=== PATIENT | female | born 1995 | race Two or more races ===

== ENCOUNTER 2018-08-31 20:57 | Emergency (ER) | payer BC, OTHER ==
[2018-08-31] MEDS ORDERED: ONDANSETRON 4 MG/2 ML VIAL IVPB ONE (21:02)
[2018-08-31] MEDS ORDERED: SODIUM CHLORIDE 1,000 ML IV ONE ×2 (21:02)
--- NOTE | 2018-08-31 21:03 | PDOC ---
History of Present Illness - History of Present Illness Initial Comments: This is a 28 year old female with no significant past medical history, who presents to the emergency department today complaining of nausea and vomiting for 2 days. Patient notes multiple episodes of nausea and vomiting each day, but denies hematemesis. She also reports associated diffuse cramping abdominal pain. Patient confirms chills, but denies a fever. 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 The patient denies chest pain, shortness of breath, headache and dizziness. Denies fever, diarrhea and constipation. Denies dysuria, frequency, urgency and hematuria. PAST MEDICAL HISTORY: no significant history PAST SURGICAL HISTORY: no significant history FAMILY HISTORY: no pertinent history SOCIAL HISTORY: Pt lives with family and is employed. MEDICATIONS: reviewed ALLERGIES: As per nursing notes ROS General: +Chills. No fevers, no weakness, no weight loss HEENT: No change in vision. No sore throat,. No ear pain CardioVascular: No chest pain or shortness of breath Respiratory: No cough, or wheezing. Gastrointestinal: +Nausea. +Vomiting. No diarrhea or constipation, No rectal bleeding Genitourinary: No dysuria, hematuria, or frequency Musculoskeletal: +Diffuse abdominal cramping. No joint or muscle swelling. Neurologic: No headache, vertigo, dizziness or loss of consciousness Psychiatric: nor depression Skin: No rashes or easy bruising Endocrine: no increased thirst or abnormal weight change Allergic: no skin or latex allergy All other systems reviewed and normal Exam: General: Well-nourished well-developed individual, no acute distress HEENT: +Dry mucous membranes. Throat: Normal, tonsils normal, no erythema or exudate Neck: Supple, no meningeal signs, no lymphadenopathy Eyes::Pupils equal reactive and round, extraocular motion intact Chest: Nontender to palpation Cardiac: +Mild tachycardia. S1-S2 normal, no murmurs rubs or gallops Respiratory: Lungs clear to auscultation bilateral Abdomen: Soft, nondistended, normal bowel sounds, nontender to palpation diffusely Extremities: Warm, dry, no cyanosis, clubbing, or edema Skin: No rashes Neuro: Alert and oriented x3, nonfocal exam, grossly intact, normal gait Psych: Normal mood and affect 08/31/18 21:30 <Olivia Nino - Last Filed: 08/31/18 21:33> - General History Source: Patient Exam Limitations: No Limitations - History of Present Illness Initial Comments: 08/31/18 21:15 A portion of this note was documented by scribe services under my direction. I have reviewed the details of the note, within reason, and agree with the documentation with the following case summary and management plan written by me. Patient treated in the ED. Nursing notes are reviewed and incorporated into the medical decision-making. Vital signs reviewed. Assessment and plan: This is a 23-year-old female who comes in complaining of nausea vomiting 2 days. 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 Patient otherwise denies any fevers but says she's had some chills as well as some crampy abdominal pain associated only with vomiting. On my exam patient had a mild tachycardia. To be mildly dehydrated but otherwise had a normal abdominal exam Patient given Zofran and 2 L of IV fluid 08/31/18 22:10 Patient feels much better, tolerating by mouth's, patient was able to urinate after hydration. Patient discharged home with prescription for Zofran <Deirck Bustos I - Last Filed: 08/31/18 22:10> - General Chief Complaint: Nausea/Vomiting Stated Complaint: VOMITING SINCE YESTERDAY Time Seen by Provider: 08/31/18 21:01 Past History <Olivia Nino - Last Filed: 08/31/18 21:33> - Immunization History Immunization Up to Date: Yes - Suicide/Smoking/Psychosocial Hx Smoking Status: No Smoking History: Never smoked Number of Cigarettes Smoked Daily: 0 <Derick Bustos I - Last Filed: 08/31/18 22:10> - Past Medical History Allergies/Adverse Reactions: Allergies Allergy/AdvReac Type Severity Reaction Status Date / Time No Known Allergies Allergy Verified 02/08/12 15:59 Home Medications: Ambulatory Orders Norgestimate-Ethinyl Estradiol [Sprintec 28 Day Tablet] 1 each PO DAILY Ondansetron [Zofran Odt -] 4 mg SL TID #12 od.tablet 08/31/18 *Physical Exam - Vital Signs Last Vital Signs Temp Pulse Resp BP Pulse Ox 99 F 108 H 16 135/72 100 08/31/18 21:07 08/31/18 21:07 08/31/18 21:07 08/31/18 21:07 08/31/18 21:07 <Olivia Nino - Last Filed: 08/31/18 21:33> Moderate Sedation - Procedure Monitoring Vital Signs: Procedure Monitoring Vital Signs Temperature 99 F 08/31/18 21:07 Pulse Rate 108 H 08/31/18 21:07 Respiratory Rate 16 08/31/18 21:07 Blood Pressure 135/72 08/31/18 21:07 O2 Sat by Pulse Oximetry (%) 100 08/31/18 21:07 <Olivia Nino - Last Filed: 08/31/18 21:33> ED Treatment Course - Medications Given in the ED: ED Medications Discontinued Medications Generic Name Dose Route Start Last Admin Trade Name Momo PRN Reason Stop Dose Admin Ondansetron HCl 8 mg 08/31/18 21:02 08/31/18 21:03 Zofran Injection IVPB 08/31/18 21:03 8 mg ONCE ONE Administration <Olivia Nino - Last Filed: 08/31/18 21:33> *DC/Admit/Observation/Transfer - Attestations Scribe Attestion: 08/31/18 21:33 Documentation prepared by ALEJANDRA Mccarthy, acting as medical instructor for Derick Bustos MD. <Olivia Nino - Last Filed: 08/31/18 21:33> - Discharge Dispostion Decision to Admit order: No <Derick Bustos I - Last Filed: 08/31/18 22:10> Diagnosis at time of Disposition: Nausea and vomiting Qualifiers: Vomiting type: unspecified Vomiting Intractability: non-intractable Qualified Code(s): R11.2 - Nausea with vomiting, unspecified - Discharge Dispostion Disposition: HOME Condition at time of disposition: Stable - Prescriptions Prescriptions: Ondansetron [Zofran Odt -] 4 mg SL TID #12 od.tablet - Patient Instructions Additional Instructions: Clear liquids only for the next 6 hours.. If you vomit again take Zofran 1 tablet under your tongue as often as every 6-8 hours After that if you have had no further vomiting you may have bananas, rice, applesauce, or toast. If no further vomiting for another 8 hours you may have regular food. If you vomit again then nothing to eat or drink for 2 hours. then start back with the clear liquids. Return to the emergency department immediately with ANY new, persistent or worsening symptoms. You MUST call and follow up with your doctor tomorrow if not better. Please make sure your doctor reviews the results of your emergency evaluation.
[2018-08-31 21:13] VITALS: BP 135/72; PULSE 108; TEMP 99; BMI 23.2
== END 2018-08-31 22:14 | disposition home or self-care (01) ==
LOC: FER 20:57
PROC: 3E033GC Introduction of Other Therapeutic Substance into Peripheral Vein, Percutaneous Approach (ICD-10-PCS; principal; 2018-08-31)
PROC: 3E0337Z Introduction of Electrolytic and Water Balance Substance into Peripheral Vein, Percutaneous Approach (ICD-10-PCS; 2018-08-31)
DX: R11.2 Nausea with vomiting, unspecified (principal)
CPT/HCPCS: 99281-25; J7030